=== PATIENT | male | born 1975 | race Caucasian/White ===

== ENCOUNTER 2018-03-25 20:38 | Inpatient (IN) | payer OTHER ==
[~2018-03-25] VITALS: Ht 170.2 cm; Wt 93.0 kg
[2018-03-25 20:44] VITALS: BP 137/89
--- NOTE | 2018-03-25 20:44 | NUR ---
TO BED # 12 AMBULATORY, REPORT GIVEN TO VIKASH PARSONS
--- NOTE | 2018-03-25 21:02 | NUR ---
43/M CAME IN WITH FAMILY, C/O 02/25 INTERMITTENT SHARP BL UPPER QUADRANT ABD PAIN, X1 DAY. PT REPORTS STARTING DIARRHEA IN THE AM, N/V X2 HRS. PT DENIES FEVER, CP, SOB. LUNG SOUNDS CLEAR BL. BS HYPOACTIVE X4, ABD SOFT ROUND TENDER ON UPPER QUADRANTS, DENIES LOWER QUADRANT TENDERNESS. PT REPORTS TAKING TUMS WITH NO RELIEF. DENIES HX, RX PT REPORTS USUALLY DRINKING 12 BEERS IN WEEKEND DAYS (FRI, SAT, SUN)
[2018-03-25] MEDS ORDERED: NACL 0.9% 1,000 ML IV SCH (21:48)
[2018-03-25] MEDS ORDERED: diphenhydrAMINE 50 MG/ML VIAL IVP ONE (21:50)
[2018-03-25] MEDS ORDERED: METOCLOPRAMIDE 10 MG/2 ML INJ VIAL IVP ONE (21:50)
[2018-03-25] MEDS ORDERED: MORPHINE SULFATE 10 MG/ML SYR IVP ONE (21:50)
[2018-03-25] MEDS ORDERED: MORPHINE SULFATE 4 MG/ML SYR IVP ONE (22:00)
[2018-03-25] MEDS ORDERED: MORPHINE SULFATE 2 MG/ML SYR IVP ONE (22:00)
[2018-03-25 22:08] LABS: BASOPHILS % (AUTO) 0.4 % (0.0-2.0); EOSINOPHILS # (AUTO) 0.2 K/uL (0-0.4); EOSINOPHILS % (AUTO) 1.6 % (0.0-4.0); HEMATOCRIT 43.9 % (36-52); LYMPHOCYTES # (AUTO) 2.5 K/uL (2.0-11.5); LYMPHOCYTES % (AUTO) 21.9 % (20.5-51.1); MEAN CORPUSCULAR HEMOGLOBIN 31 pg (27-31); MEAN CORPUSCULAR HGB CONC 34 g/dL (33-37); MEAN CORPUSCULAR VOLUME 90.2 fL (80-94); MONOCYTES # (AUTO) 1.2 K/uL (0.8-1.0); MONOCYTES % (AUTO) 10.2 % (1.7-9.3); NEUTROPHILS # (AUTO) 7.4 K/uL (1.8-7.7); NEUTROPHILS % (AUTO) 65.9 % (42.2-75.2); PLATELET COUNT (AUTO) 243 K/uL (140-450); RED BLOOD CELL COUNT(AUTO) 4.87 MIL/uL (4.20-6.10); RED CELL DISTRIBUTION WIDTH 12.9 % (11.6-13.7); WHITE BLOOD COUNT (AUTO) 11.3 K/uL (4.8-10.8)
--- NOTE | 2018-03-25 22:10 | NUR ---
BLOOD WORK COLLECTED AND HANDED TO DIPLOMA MAKER, MEDS GIVEN. US TECH AT BEDSIDE
[2018-03-25 22:18] LABS: APPEARANCE,URINE CLEAR (CLEAR); BILIRUBIN,URINE NEGATIVE (NEGATIVE); BLOOD, URINE NEGATIVE (NEGATIVE); COLOR,URINE YELLOW (YELLOW); LEUKOCYTE ESTERASE ,URINE NEGATIVE (NEGATIVE); NITRITE, URINE NEGATIVE (NEGATIVE); UGLUCOSE NEGATIVE (NEGATIVE)
[2018-03-25 22:20] LABS: CARBON DIOXIDE 29.7 mmol/L (21-32); CREATININE 0.8 mg/dL (0.7-1.3); POTASSIUM 3.7 mmol/L (3.5-5.1)
[2018-03-25 22:26] LABS: ALBUMIN 3.7 g/dL (3.4-5.0); TOTAL BILIRUBIN 0.3 mg/dL (0.0-1.0)
--- NOTE | 2018-03-25 22:46 | NUR ---
PT TAKEN TO CT
--- NOTE | 2018-03-25 23:10 | NUR ---
PT RESTING IN BED, PT REPORTS 5/10 ABD PAIN, REPORTS RELIEF WITH MEDS AT THIS TIME. RR EVEN AND UNLABORED. ER MD AT BEDSIDE TO SPEAK WITH PT. ALL NEEDS MET.
[2018-03-25] MEDS ORDERED: NACL 0.9% 1,000 ML IV ONE (23:30)
[2018-03-25] MEDS ORDERED: PIPERACILLIN/TAZOBACTAM 4.5 GM in DEXTROSE 5% 100 ML IV ONE (23:30)
[2018-03-25] MEDS ORDERED: PIPERACILLIN/TAZOBACTAM 2.25 GM VIAL IV ONE (23:44)
[2018-03-26] MEDS ORDERED: ONDANSETRON 4 MG/2 ML VIAL IVP PRN ×2 (00:40→18:15)
[2018-03-26] MEDS ORDERED: ACETAMINOPHEN 325 MG TAB PO PRN (00:40)
--- NOTE | 2018-03-26 01:20 | NUR ---
Patient will be admitted to care of DR. JEONG. Admited to MS. Will go to room 106B. Belongings list completed. Report to JAQUELINE QURESHI.
[2018-03-26 01:22] VITALS: BP 118/59
--- NOTE | 2018-03-26 01:22 | NUR ---
RECEIVED REPORT FROM ER NURSE VIKASH AT BEDSIDE FOR CONTINUITY OF CARE. PT AAOX4, URDU SPEAKING. PT IV NOTED RAC 20G NS WIDE OPEN. NO SOB NO S/S OF DISTRESS ON RA. BED LOWERED PT ORIENTED TO ROOM. WILL CONTINUE TO MONITOR.
[2018-03-26] MEDS: DEXT 5% / NACL 0.45% 1,000 ML IV SCH ×3 (02:00→20:39)
--- NOTE | 2018-03-26 02:10 | NUR ---
PT C/O 8/10 PAIN IN ABDOMEN. PT REQUEST TO USE TOILET AND WAS ABLE TO AMBULATE STEADILY. PT GIVEN PRN MORPHINE FOR 10 PAIN.
[2018-03-26] MEDS ORDERED: PIPERACILLIN/TAZOBACTAM 3.375 GM VIAL IV ONE (03:52)
--- NOTE | 2018-03-26 04:37 | NUR ---
PT SLEEPING NO SOB NO S/S OF DISTRESS ON RA. WILL CONTINUE TO MONITOR.
[2018-03-26] MEDS ORDERED: PIPERACILLIN/TAZOBACTAM 3.375 GM in DEXTROSE 5% 50 ML IV SCH (05:00)
--- NOTE | 2018-03-26 07:15 | NUR ---
ENDORSED REPORT TO DAYSHIFT NURSE AT BEDSIDE FOR CONTINUITY OF CARE.
--- NOTE | 2018-03-26 07:30 | NUR ---
RECEIVED REPORT FROM SECURITIES UNDERWRITER NURSE AT BEDSIDE. PT IS AAOX4, ENGLISH SPEAKING. PT IV NOTED R AC 20G, INFUSING D5 1/2 NS, AT 100ML/HR. NO S/S OF RESPIRATORY DISTRESS ON RA. BED IN LOWEST POSITION, CALL LIGHT WITHIN REACH. WILL CONTINUE TO MONITOR.
[2018-03-26 08:00] VITALS: BP 105/65
--- NOTE | 2018-03-26 08:49 | NUR ---
PATIENT HAS BEEN SCREENED AND CATEGORIZED MODERATE NUTRITION RISK. PATIENT WILL BE SEEN WITHIN 3-5 DAYS OF ADMISSION. 03/28/18 03/30/[address]
--- NOTE | 2018-03-26 09:19 | NUR ---
CALLED [facility] AND SPOKE WITH JEANETTE, PHONE [phone]. SHE SAID THIS WAS HER PATIENT AND FAX REVIEW TO HER AT [phone]. NO REVIEW NEEDED TO AYAKA. ADMISSION CHART REVIEW DONE FAXED INITIAL REVIEW WITH ER REPORT TO [facility] [phone].
--- NOTE | 2018-03-26 10:40 | NUR ---
SPOKE WITH DR WESTBROOK, REPORTED CT ABD RESULT, WBC, K, PT'S AGE, SEX, WEIGHT, HEIGHT. DR WESTBROOK SAID SURGERY THIS AFTERNOON, OBTAIN CONSENT FOR LAP APPY WITH POSSIBLE OPEN.
[2018-03-26] MEDS: PIPER/TAZO 3.375GM/D5W PREMIX 50 ML IV SCH ×2 (13:49→20:36)
[2018-03-26 16:00] VITALS: BP 106/68
--- NOTE | 2018-03-26 17:00 | NUR ---
PT HAS BEEN TAKEN TO OR.
[2018-03-26] MEDS ORDERED: DEXAMETHASONE 4 MG/ML VIAL ONE (17:20)
[2018-03-26] MEDS ORDERED: NEOSTIGMINE 1:1000 10 MG/10 ML VIAL ONE (17:20)
[2018-03-26] MEDS ORDERED: ROCURONIUM 50 MG/5 ML VIAL IV ONE (17:20)
[2018-03-26] MEDS ORDERED: ONDANSETRON 4 MG/2 ML VIAL ONE (17:20)
[2018-03-26] MEDS ORDERED: MIDAZOLAM 2 MG/2 ML VIAL ONE (17:20)
[2018-03-26] MEDS ORDERED: PROPOFOL 200 MG/20 ML VIAL IV ONE (17:20)
[2018-03-26] MEDS ORDERED: SUCCINYLCHOLINE CHLORIDE 200 MG/10 ML VIAL IVP ONE ×2 (17:20→17:26)
[2018-03-26] MEDS ORDERED: SEVOFLURANE 250 ML BTL INH ONE (17:20)
[2018-03-26] MEDS ORDERED: fentaNYL 0.05 MG/ML VIAL ONE (17:20)
[2018-03-26] MEDS ORDERED: GLYCOPYRROLATE 0.2 MG/ML VIAL ONE (17:20)
[2018-03-26] MEDS ORDERED: MEPERIDINE 50 MG/ML SYR ONE (17:21)
[2018-03-26] MEDS ORDERED: BUPIVACAINE-MPF/EPI 0.25% 30 ML VIAL INJ ONE (17:35)
[2018-03-26] MEDS ORDERED: LACTATED RINGERS 1,000 ML IV SCH (18:13)
[2018-03-26] MEDS ORDERED: diphenhydrAMINE 50 MG/ML VIAL IVP PRN (18:15)
[2018-03-26] MEDS ORDERED: MEPERIDINE 25 MG/ML SYR IVP PRN (18:15)
[2018-03-26] MEDS ORDERED: HYDROcodone/APAP 5/325 MG 1 TAB TAB PO PRN (18:40)
[2018-03-26] MEDS: HYDROmorphone 1 MG/ML AMP IVP PRN ×4 (18:50→19:20)
[2018-03-26] MEDS ORDERED: HYDROmorphone PFS 2 MG/ML SYR ONE (19:06)
--- NOTE | 2018-03-26 19:35 | NUR ---
PT ARRIVED BACK ON THE FLOOR POST SURGERY, PT GROGGY BUT AWOKEN TO NAME. RECEIVED REPORT FROM OR NURSE . FAMILY AT BEDSIDE. V/S FOLLOWS T 97.3 P 80 R 20 B/P 118/57 02 88-91%. PT PLACED ON 2LITERS 02 TO BRING 02 STAT UP TO 93%.PT NOTED WITH 4 SMALL LOOKS LIKE LITTLE BRUISES NO BLEEDING OR DISCHARGE NOTED.
[2018-03-26 20:00] VITALS: BP 118/57
[2018-03-26] MEDS: MORPHINE SULFATE 4 MG/ML SYR IVP PRN (20:28)
--- NOTE | 2018-03-26 20:30 | NUR ---
PT C//O 01/25 PAIN IN UPPER ABDOMEN GIVEN PRN MORPHINE WITH POSITIVE EFFECT NOTED. PT AMBULATED TO BATHROOM WITH HELP OF HIS AND PRIMARY RN STANDBY.
--- NOTE | 2018-03-26 21:00 | NUR ---
PT IN BED AT BEDSIDE PT V/S ARE T 97.6 P 92 R 18 B/P 120/62 02 98% ON R/A .
--- NOTE | 2018-03-26 23:15 | NUR ---
PT C/O BREAK THROUGH PAIN 5/10 GIVEN NORCO PO/PRN. AWAITING EFFECT.
--- NOTE | 2018-03-27 | NUR ---
V/S FOLLOWS T 97.9 P 82 R 18 B/P 127/63 02 95%.
[2018-03-27] MEDS: MORPHINE SULFATE 4 MG/ML SYR IVP PRN ×2 (01:44→06:16)
--- NOTE | 2018-03-27 02:00 | NUR ---
PT IN BED ASLEEP NO S/S OF PAIN OR DISTRESS NOTED, BED LOW SEQUENTIALS IN PLACE ON LOWER BE .
[2018-03-27] MEDS: PIPER/TAZO 3.375GM/D5W PREMIX 50 ML IV SCH (04:52)
[2018-03-27 05:51] LABS: BASOPHILS % (AUTO) 0.1 % (0.0-2.0); HEMATOCRIT 42.2 % (36-52); HEMOGLOBIN 14.3 g/dL (12.0-18.0); LYMPHOCYTES % (AUTO) 10.7 % (20.5-51.1); MEAN CORPUSCULAR HEMOGLOBIN 31 pg (27-31); MEAN CORPUSCULAR HGB CONC 34 g/dL (33-37); MEAN CORPUSCULAR VOLUME 90.5 fL (80-94); MONOCYTES # (AUTO) 0.5 K/uL (0.8-1.0); MONOCYTES % (AUTO) 5.6 % (1.7-9.3); NEUTROPHILS # (AUTO) 7.5 K/uL (1.8-7.7); NEUTROPHILS % (AUTO) 83.6 % (42.2-75.2); PLATELET COUNT (AUTO) 228 K/uL (140-450); RED BLOOD CELL COUNT(AUTO) 4.66 MIL/uL (4.20-6.10); RED CELL DISTRIBUTION WIDTH 12.9 % (11.6-13.7)
[2018-03-27 06:24] LABS: ANION GAP 7.7 (8-16); CARBON DIOXIDE 27.3 mmol/L (21-32); CREATININE 0.8 mg/dL (0.7-1.3)
--- NOTE | 2018-03-27 07:20 | NUR ---
MORPHINE GIVEN AT 0615, FOR 7/10 OUT OF PAIN. AROUND 7 AM PT GOT UP OUT OF BED TO USE RESTROOM AND BRUSH HIS TEETH GAIT STEADY WITH NO S/S OF PAIN OR DISTRESS NOTED.
--- NOTE | 2018-03-27 07:25 | NUR ---
ASSUMED CONTINUITY OF CARE. NO SIGNS AND SYMPTOMS OF ACUTE DISTRESS NOTED. INITIAL ASSESSMENT DONE. KEEP COMFORTABLE ON BED. EXPLAINED DIAGNOSIS, PLAN OF CARE, POST-OP CARE, PAIN MANAGEMENT TEACHING, USE OF CALL LIGHT/BED/TV/BATHROOM. VERBALIZED UNDERSTANDING. CALL LIGHT WITHIN REACH.
--- NOTE | 2018-03-27 07:25 | NUR ---
REPORT GIVEN TO THELMA WILSON AT BEDSIDE FOR CONTINUITY OF CARE, PT IN STABLE CONDITION.
--- NOTE | 2018-03-27 07:26 | NUR ---
Patient's Plan of Care was discussed and reviewed with [employer]IEF [employer]: THELMA KINGSLEY
[2018-03-27 08:00] VITALS: BP 111/68
[2018-03-27] MEDS ORDERED: ACET-2619 PO (08:44)
--- NOTE | 2018-03-27 10:20 | NUR ---
USED [employer] WITH ASSISTANT RESTAURANT GENERAL MANAGER #[id number]. EXPLAINED TO PT. AND PT. -LETICIA ABOUT MD D/C ORDER, D/C INSTRUCTIONS AND TEACHING, POST-OP CARE, PAIN MANAGEMENT TEACHING, MEDICINE FOR PAIN, INCISION CARE, MD FOLLOW UP, DIET, DISEASE MANAGEMENT TEACHING. PT. AND PT. -LETICIA VERBALIZED UNDERSTANDING. PT. REFUSED FLU VACCINE.
--- NOTE | 2018-03-27 10:33 | NUR ---
CM NOTE CONCURRENT REVIEW FAXED TO [facility] [phone], JEANETTE PHONE [phone].
--- NOTE | 2018-03-27 10:40 | NUR ---
D/C HOME VIA WHEELCHAIR ACCOMPANIED BY PT. -LETICIA AND ANOTHER FAMILY MEMBER. AWAKE, ALERT, AND ORIENTED X4. SPEECH CLEAR. NO C/O PAIN. IN STABLE CONDITION. INFORMED CHARGE NURSE YOKO OSCAR.
--- NOTE | 2018-03-28 08:37 | NUR ---
FAXED DISCHARGE SUMMARY TO [facility] [phone] Addendum: 03/28/18 at 0843 by June Pastor CM DISREGUARD ABOVE FAXED DISCHARGE SUMMARY TO [facility] [phone]
== END 2018-03-27 10:40 | disposition home or self-care (01) | DRG 343 ==
LOC: MED 20:38 → MTU 03-26 00:42
PROVIDERS: ADMIT Internal Medicine; ATTEND Internal Medicine
PROC: 0DTJ4ZZ Resection of Appendix, Percutaneous Endoscopic Approach (ICD-10-PCS; principal; 2018-03-26 17:00)
DX: K35.80 Unspecified acute appendicitis (principal); E66.9 Obesity, unspecified; K76.0 Fatty (change of) liver, not elsewhere classified; Z68.32 Body mass index [BMI] 32.0-32.9, adult
CPT/HCPCS: 36415; 76705; 80048; 80053; 81003; 82948; 83690; 85025; 86886; 86900; 86901; 87040; 87081; 93005; 96365; 96375; 99285; J0330; J1100; J1170; J1200; J2175; J2250; J2270; J2405; J2543; J2704; J2710; J2765; J3010; J3490; J7030; J7060; Q0092

== ENCOUNTER 2020-06-09 10:24 | Emergency (ER) | payer OTHER ==
[~2020-06-09] VITALS: Ht 167.6 cm; Wt 95.3 kg
[~2020-06-09 10:24] MED LIST: ACET-2619 PO
[2020-06-09 11:15] VITALS: BP 135/79
--- NOTE | 2020-06-09 12:12 | NUR ---
Júnior rivera in [facility] - 06/09/20 at 1222 by FRANCI HAILY at [facility] for medical evaluation.
--- NOTE | 2020-06-09 12:23 | NUR ---
45 y/o Male presented to ED c/o Abd pain w/ Nausea & Vomitting x 4 days. + HEATON x 2 days. Pt denies fever, body aches, chills and fever. Pt denies SOB & CP. Pt states he has been unable to keep food or fluids down for past couple of days. Pt a/o x 4. RR even and unlabored. Abs soft, flat and nontender. Active bowel sounds. Pt resting in car in front of Tent. Pt provided emesis bag at this time. no acute distress. ERMD made aware of pt status. HX DENIES RX DENIES
--- NOTE | 2020-06-09 12:51 | NUR ---
ermd in Tent for medical evaluation.
[2020-06-09] MEDS ORDERED: KETOROLAC 60 MG/2 ML VIAL IM ONE ×2 (12:55→12:56)
[2020-06-09] MEDS ORDERED: ONDANSETRON 4 MG ODT PO ONE (12:55)
[2020-06-09] MEDS ORDERED: KETOROLAC 30 MG/ML VIAL ONE (12:58)
[2020-06-09] MEDS ORDERED: ONDANSETRON 4 MG/2 ML VIAL ONE (12:58)
[2020-06-09] MEDS ORDERED: KETOROLAC 30 MG/ML VIAL IVP ONE (13:00)
[2020-06-09] MEDS ORDERED: NACL 0.9% 1,000 ML IV ONE (13:00)
[2020-06-09] MEDS ORDERED: ONDANSETRON 4 MG/2 ML VIAL IVP ONE (13:00)
--- NOTE | 2020-06-09 13:19 | NUR ---
novel covid swab collected and walked to lab.
[2020-06-09 14:01] VITALS: BP 130/80
--- NOTE | 2020-06-09 14:01 | NUR ---
Patient discharged with v/s stable. Written and verbal after care instructions given and explained. Patient alert, oriented and verbalized understanding of instructions. Ambulatory with steady gait. All questions addressed prior to discharge. ID band removed. Patient advised to follow up with PMD. Rx of Motrin and Zofran given. Patient educated on indication of medication including possible reaction and side effects. Opportunity to ask questions provided and answered.
== END 2020-06-09 14:01 | disposition home or self-care (01) ==
LOC: MED 10:24
DX: R10.13 Epigastric pain (principal); Z20.828 Contact with and (suspected) exposure to other viral communicable diseases; R11.2 Nausea with vomiting, unspecified; R43.9 Unspecified disturbances of smell and taste
CPT/HCPCS: 96361; 96374; 96375; 99284; J1885; J2405; J7030; U0003; Q0162